=== PATIENT | female | born 1965 | race Caucasian/White ===

== ENCOUNTER 2022-06-03 19:43 | Observation (INO) ==
[2022-06-03 20:08] LABS: Basophils % 0.3 % (0.0-0.8); Eosinophils # 0.1 10*3/uL (0.0-0.87); Eosinophils % 0.9 % (0.00-10.9); Hematocrit 42.6 VOL% (35.7-47.0); Hemoglobin 13.4 GM/DL (12.0-16.0); Immature Granulocytes % 0.4 %; Immature Granulocytes Absolute 0.05 #; Lymphocytes # 4.2 10*3/uL (1.4-4.0); Mean Corpuscular HGB Conc 31.5 GM/DL (32-36); Mean Corpuscular Volume 88.2 FL (87-102); Mean Platelet Volume 9.8 FL (9.6-12.0); Monocytes # 0.5 10*3/uL (0.11-0.8); Monocytes % 3.6 % (1.7-12.7); Neutrophils % 64.8 % (38.7-73.9); Platelet Count 266 T/CUMM (130-400); Red Blood Count 4.83 MC/CUMM (3.8-5.5); Red Cell Distribution Width 14.2 % (9.3-17.3); White Blood Count 13.9 T/CUMM (4-12)
[2022-06-03 20:20] LABS: INR 0.9; PT Patient Result 10.3 SECS (10.1-12.1); Partial Thromboplastin Time 26.8 SECS (23.7-32.9)
[2022-06-03 20:28] LABS: Alanine Aminotransferase 50 U/L (13-56); Albumin 3.5 G/DL (3.4-5.0); Alkaline Phosphatase 108 U/L (45-117); Aspartate Amino Transferase 41 U/L (0-37); Bilirubin,Total < 0.39 MG/DL (0.20-1.00); Blood Urea Nitrogen 14 MG/DL (7-18); Calcium 8.7 MG/DL (8.5-10.1); Carbon Dioxide 30 MMOL/L (21-32); Chloride 104 MMOL/L (98-107); Glucose 283 MG/DL (74-106); Osmolality,Calculated 293.1 MOS/KG (273-304); Potassium 3.6 MMOL/L (3.5-5.1); Sodium 142 MMOL/L (136-145)
[2022-06-03] MEDS ORDERED: LABETALOL 20 MG/4 ML SYRINGE IV STA (20:32)
[2022-06-03] MEDS ORDERED: GLUCAGON 1 MG VIAL IM PRN (21:16)
[2022-06-03] MEDS ORDERED: ONDANSETRON 4 MG/2 ML VIAL IV PRN (21:24)
[2022-06-03] MEDS ORDERED: MORPHINE 2 MG/1 ML SYRINGE IV PRN (21:24)
[2022-06-03] MEDS ORDERED: SODIUM CHLORIDE 0.9% 1,000 ML IV SCH (21:30)
[2022-06-03] MEDS ORDERED: LABETALOL 20 MG/4 ML SYRINGE IV PRN (21:37)
[2022-06-03] MEDS ORDERED: DEXTROSE 10% 250 ML BAG IV PRN (21:58)
[2022-06-04 00:42] LABS: Alanine Aminotransferase 37 U/L (13-56); Albumin 3.3 G/DL (3.4-5.0); Alkaline Phosphatase 98 U/L (45-117); Aspartate Amino Transferase 27 U/L (0-37); Bilirubin,Total < 0.39 MG/DL (0.20-1.00); Blood Urea Nitrogen 15 MG/DL (7-18); Calcium 9.1 MG/DL (8.5-10.1); Carbon Dioxide 29 MMOL/L (21-32); Chloride 106 MMOL/L (98-107); Cholesterol 117 MG/DL (50-200); Glucose 242 MG/DL (74-106); HDL Cholesterol 36 MG/DL (40-60); Osmolality,Calculated 289.3 MOS/KG (273-304); Potassium 3.4 MMOL/L (3.5-5.1); Risk Ratio 3.25; Sodium 141 MMOL/L (136-145); Total Protein 6.7 G/DL (6.4-8.2); Triglycerides 145 MG/DL (2-150)
[2022-06-04] MEDS: INSULIN LISPRO 100 UNIT/ML SUBCUT SCH ×4 (07:51→20:18)
[2022-06-04] MEDS ORDERED: ENOXAPARIN 40 MG/0.4 ML SYRINGE SUBCUT SCH (09:00)
[2022-06-04] MEDS ORDERED: VALSARTAN 80 MG TABLET PO SCH (09:00)
[2022-06-04] MEDS: INSULIN GLARGINE 100 UNIT/ML SUBCUT SCH (09:13)
[2022-06-04] MEDS: hydroCHLOROthiazide 12.5 MG CAPSULE PO SCH (09:13)
[2022-06-04] MEDS: PANTOPRAZOLE 40 MG TABLET PO SCH (09:13)
[2022-06-04] MEDS: ROSUVASTATIN 20 MG TABLET PO SCH (09:13)
[2022-06-04] MEDS: VALSARTAN 80 MG TABLET PO SCH (09:13)
[2022-06-04 10:14] LABS: Basophils % 0.4 % (0.0-0.8); Eosinophils # 0.2 10*3/uL (0.0-0.87); Eosinophils % 1.4 % (0.00-10.9); Immature Granulocytes % 0.3 %; Immature Granulocytes Absolute 0.03 #; Lymphocytes # 4.1 10*3/uL (1.4-4.0); Lymphocytes % 37.3 % (21.3-54.2); Mean Corpuscular HGB Conc 30.8 GM/DL (32-36); Mean Corpuscular Volume 90.1 FL (87-102); Mean Platelet Volume 10.4 FL (9.6-12.0); Monocytes # 0.4 10*3/uL (0.11-0.8); Neutrophils % 56.6 % (38.7-73.9); Platelet Count 244 T/CUMM (130-400); Red Blood Count 4.33 MC/CUMM (3.8-5.5); Red Cell Distribution Width 14.4 % (9.3-17.3); White Blood Count 11.1 T/CUMM (4-12)
[2022-06-04 10:21] LABS: Calcium 8.4 MG/DL (8.5-10.1); Osmolality,Calculated 287.8 MOS/KG (273-304); Potassium 3.8 MMOL/L (3.5-5.1)
[2022-06-04] MEDS: METOPROLOL TARTRATE 25 MG TABLET PO SCH ×2 (11:13→20:18)
[2022-06-04] MEDS: ASPIRIN EC 81 MG TABLET PO SCH (11:13)
[2022-06-04] MEDS: ENOXAPARIN 40 MG/0.4 ML SYRINGE SUBCUT SCH (13:05)
[2022-06-05 05:17] LABS: Basophils % 0.3 % (0.0-0.8); Eosinophils # 0.2 10*3/uL (0.0-0.87); Eosinophils % 1.7 % (0.00-10.9); Hematocrit 40.8 VOL% (35.7-47.0); Hemoglobin 12.8 GM/DL (12.0-16.0); Immature Granulocytes % 0.5 %; Immature Granulocytes Absolute 0.07 #; Lymphocytes # 3.8 10*3/uL (1.4-4.0); Lymphocytes % 27.6 % (21.3-54.2); Mean Corpuscular HGB Conc 31.4 GM/DL (32-36); Mean Corpuscular Volume 88.5 FL (87-102); Mean Platelet Volume 9.9 FL (9.6-12.0); Monocytes # 0.6 10*3/uL (0.11-0.8); Monocytes % 4.5 % (1.7-12.7); Neutrophils % 65.4 % (38.7-73.9); Platelet Count 252 T/CUMM (130-400); Red Blood Count 4.61 MC/CUMM (3.8-5.5); Red Cell Distribution Width 14.3 % (9.3-17.3); White Blood Count 13.6 T/CUMM (4-12)
[2022-06-05 05:33] LABS: Calcium 9.2 MG/DL (8.5-10.1); Osmolality,Calculated 276.7 MOS/KG (273-304); Potassium 3.9 MMOL/L (3.5-5.1)
[2022-06-05] MEDS: INSULIN LISPRO 100 UNIT/ML SUBCUT SCH ×4 (07:57→22:19)
[2022-06-05] MEDS: ROSUVASTATIN 20 MG TABLET PO SCH (08:34)
[2022-06-05] MEDS: hydroCHLOROthiazide 12.5 MG CAPSULE PO SCH (08:34)
[2022-06-05] MEDS: METOPROLOL TARTRATE 25 MG TABLET PO SCH ×2 (08:34→22:20)
[2022-06-05] MEDS: VALSARTAN 80 MG TABLET PO SCH (08:34)
[2022-06-05] MEDS: ASPIRIN EC 81 MG TABLET PO SCH (08:34)
[2022-06-05] MEDS: PANTOPRAZOLE 40 MG TABLET PO SCH (08:34)
[2022-06-05] MEDS: INSULIN GLARGINE 100 UNIT/ML SUBCUT SCH (08:35)
[2022-06-05] MEDS ORDERED: NITROGLYCERIN SL 0.4 MG TABLET SL PRN (09:13)
[2022-06-05] MEDS ORDERED: DIAZEPAM 5 MG TABLET ONE (09:49)
[2022-06-05] MEDS ORDERED: diphenhydrAMINE 50 MG/1 ML VIAL ONE (09:49)
[2022-06-05] MEDS ORDERED: MIDAZOLAM 2 MG/2 ML VIAL ONE (09:49)
[2022-06-05] MEDS ORDERED: fentaNYL 100 MCG/2 ML VIAL ONE (09:50)
[2022-06-05] MEDS ORDERED: diphenhydrAMINE CAP 50 MG CAPSULE ONE (09:50)
[2022-06-05] MEDS ORDERED: DEXTROSE 10% 250 ML BAG IV PRN (10:26)
[2022-06-05] MEDS ORDERED: SODIUM CHLORIDE 0.9% 1,000 ML IV SCH (10:30)
[2022-06-05] MEDS ORDERED: GLUCAGON 1 MG VIAL IM PRN (10:32)
[2022-06-05] MEDS ORDERED: DEXTROSE 50% 25 GM/50 ML VIAL IV PRN (10:32)
[2022-06-05] MEDS: ENOXAPARIN 40 MG/0.4 ML SYRINGE SUBCUT SCH (11:14)
[2022-06-06 05:03] LABS: Basophils % 0.3 % (0.0-0.8); Eosinophils # 0.2 10*3/uL (0.0-0.87); Eosinophils % 1.5 % (0.00-10.9); Hematocrit 39.5 VOL% (35.7-47.0); Hemoglobin 12.2 GM/DL (12.0-16.0); Immature Granulocytes % 0.7 %; Immature Granulocytes Absolute 0.08 #; Lymphocytes # 3.2 10*3/uL (1.4-4.0); Lymphocytes % 26.5 % (21.3-54.2); Mean Corpuscular HGB Conc 30.9 GM/DL (32-36); Mean Corpuscular Volume 89.2 FL (87-102); Mean Platelet Volume 9.9 FL (9.6-12.0); Monocytes # 0.5 10*3/uL (0.11-0.8); Monocytes % 4.4 % (1.7-12.7); Neutrophils % 66.6 % (38.7-73.9); Platelet Count 233 T/CUMM (130-400); Red Blood Count 4.43 MC/CUMM (3.8-5.5); Red Cell Distribution Width 14.1 % (9.3-17.3); White Blood Count 12.2 T/CUMM (4-12)
[2022-06-06 05:20] LABS: Calcium 9.3 MG/DL (8.5-10.1); Osmolality,Calculated 280.5 MOS/KG (273-304)
[2022-06-06 08:17] VITALS: BP 130/81
[2022-06-06] MEDS: VALSARTAN 80 MG TABLET PO SCH (09:45)
[2022-06-06] MEDS: METOPROLOL TARTRATE 25 MG TABLET PO SCH (09:45)
[2022-06-06] MEDS: ASPIRIN EC 81 MG TABLET PO SCH (09:45)
[2022-06-06] MEDS: PANTOPRAZOLE 40 MG TABLET PO SCH (09:45)
[2022-06-06] MEDS: ROSUVASTATIN 20 MG TABLET PO SCH (09:45)
[2022-06-06] MEDS: hydroCHLOROthiazide 12.5 MG CAPSULE PO SCH (09:45)
[2022-06-06] MEDS: INSULIN LISPRO 100 UNIT/ML SUBCUT SCH (09:46)
[2022-06-06] MEDS: INSULIN GLARGINE 100 UNIT/ML SUBCUT SCH (09:46)
[2022-06-06] MEDS: ENOXAPARIN 40 MG/0.4 ML SYRINGE SUBCUT SCH (11:11)
== END 2022-06-06 11:05 | disposition home or self-care (01) ==
LOC: N.EDINP 19:43 → N.ED 19:43 → SUATTDRO 21:16 → N.TELEN 22:51
PROVIDERS: ADMIT Phlebology; ATTEND Family Medicine
PROC: CLCCHCL (ICD-10-PCS; 2022-06-05 11:15)